=== PATIENT | female | born 1960 | race Hispanic/Latino ===

== ENCOUNTER 2019-08-09 10:47 | Outpatient (CLI) | payer OTHER ==
--- NOTE | 2019-08-09 15:03 | Mammography Report ---
DIGITAL SCREENING MAMMOGRAM WITH CAD, 08/09/2019 INDICATION: Routine screening mammography. TECHNIQUE: Digital bilateral 2D mammography was obtained in the craniocaudal and mediolateral obliq ue projections. This examination was interpreted with the benefit of Computer-Aided Detection analysi s. COMPARISON: None available. However, she indicated that she had a previous mammogram at [facility]. FINDINGS: Breast Density: The breasts are heterogeneously dense, which may obscure small masses. A right asymmetry on the MLO view requires comparison with the prior mammogram or additional imaging. No architectural distortion or suspicious calcifications. There is no evidence of dominant mass, umm picious calcifications or architectural distortion in the left breast. IMPRESSION: Right asymmetry requiring further evaluation.Comparison with a previous mammogram is jens mmended. We will attempt to obtain a prior mammogram for comparison. If we do not obtain a prior mamm ogram within 30 days, a revised report will be issued recommending a recall for additional imaging. P robertase be advised that the patient should not schedule an appointment for return until adequate time ( at least 2 weeks) has passed for us to obtain the prior mammogram. Follow up recommendation: Obtain prior study for comparison Category 0: Incomplete. Needs additional imaging evaluation and/or prior mammograms for comparison. A "normal" or negative report should not discourage follow up or biopsy of a clinically significant f inding. A written summary of these findings will be mailed to the patient. The patient will be entered into a mammography reporting system which will generate a reminder letter for the patient's next appointmen t at the appropriate interval. The [employer] recommends yearly mammograms starting at age 40 and continuing as l [place] as a woman is in good health. Breast MRI is recommended for women with an approximate 20-25% or greater lifetime risk of breast cancer, including women with a strong family history of breast or ova ronnell cancer or who have been treated for Hodgkin's disease. Signer Name: Ludwin Guerra MD Signed: 08/09/2019 2:59 PM Workstation Name: [id number]
== END 2019-08-09 10:48 | disposition home or self-care (01) ==
LOC: MAMMO 10:47
PROVIDERS: ATTEND Internal Medicine
DX: Z12.31 Encounter for screening mammogram for malignant neoplasm of breast (principal)
CPT/HCPCS: 77067

== ENCOUNTER 2020-12-28 12:41 | Outpatient (CLI) | payer OTHER ==
--- NOTE | 2020-12-28 14:30 | XRay Report ---
AP PELVIS INDICATION: Z68.34 BODY MASS INDEX 34.0-34.9. COMPARISON: None available. FINDINGS: No fracture or dislocation within pelvis or either hip. Moderate osteitis pubis. Mild degenerative ar throsis both hips. Signer Name: Nikita Keita MD Signed: 12/28/2020 2:26 PM Workstation Name: [id number]
== END 2020-12-28 12:42 | disposition home or self-care (01) ==
LOC: SPVIMAG 12:41
PROVIDERS: ATTEND Internal Medicine
DX: M86.8X8 Other osteomyelitis, other site (principal); M16.0 Bilateral primary osteoarthritis of hip; Z68.34 Body mass index [BMI] 34.0-34.9, adult
CPT/HCPCS: 72170